=== PATIENT | female | born 1965 | race Caucasian/White ===

== ENCOUNTER 2023-12-28 14:44 | Emergency (ER) | payer OTHER, SELFPAY ==
[2023-12-28 14:51] VITALS: BP 179/99
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
== END 2023-12-28 16:29 | disposition home or self-care (01) ==
LOC: EMR 14:44
PROVIDERS: EMERGENCY PHYSICIAN Emergency Medicine
DX: S05.01XA Injury of conjunctiva and corneal abrasion without foreign body, right eye, initial encounter (principal); S60.551A Superficial foreign body of right hand, initial encounter; V79.3XXA Bus occupant (driver) (passenger) injured in unspecified nontraffic accident, initial encounter; X37 Cataclysmic storm; Y93.89 Activity, other specified; Y92.410 Unspecified street and highway as the place of occurrence of the external cause; Y99.0 Civilian activity done for income or pay; R03.0 Elevated blood-pressure reading, without diagnosis of hypertension
CPT/HCPCS: 99283

== ENCOUNTER 2024-12-09 08:12 | Emergency (ER) | payer OTHER, SELFPAY ==
[2024-12-09 08:14] VITALS: BMI 28.2
[2024-12-09 08:16] VITALS: BP 193/96
[2024-12-09 08:23] VITALS: BP 178/70
[2024-12-09 09:01] VITALS: BP 167/67
[2024-12-09 09:11] LABS: % Eosinophils 1.3 % (0-6); % Immature Granulocytes 0.3 % (0-0.5); % Monocytes 8.1 % (1.7-9.3); % Neutrophils 72.3 % (42.2-75.2); Absolute Basophils 0.1 10^3/uL (0-0.2); Absolute Eosinophils 0.1 10^3/uL (0-0.7); Absolute Lymphocytes 1.3 10^3/uL (1.2-3.4); Absolute Monocytes 0.6 10^3/uL (0.1-0.6); Absolute Neutrophils 5.6 10^3/uL (1.4-6.5); Hematocrit 45.2 % (37.0-47.0); Mean Corp Hgb Conc. 33.2 g/dL (33.0-37.0); Mean Corpuscular Hgb 32.5 pg (27.0-31.0); Mean Corpuscular Volume 97.8 fL (81.0-99.0); Mean Platelet Volume 9.6 fL (7.4-10.4); Nucleated Red Blood Cells % 0 %; Platelet Count 256 10^3/uL (130-400); Red Blood Cell Count 4.62 10^6/uL (4.20-5.40); Red Cell Dist. Width 14.5 % (11.5-14.5); White Blood Cell Count 7.8 10^3/uL (4.8-10.8)
[2024-12-09 09:25] LABS: ALT (SGPT) 14 U/L (0-35); AST (SGOT) 21 U/L (14-36); Albumin 4.4 g/dl (3.5-5.0); Alkaline Phosphatase 77 U/L (38-126); Blood Urea Nitrogen 23 mg/dl (7-17); Calcium 9.3 mg/dl (8.4-10.2); Carbon Dioxide 27 mmol/L (22-30); Chloride 105 mmol/L (98-107); Estimated Creatinine Clearance 112 ml/min; Glucose 87 mg/dl (70-99); Lipase 163 U/L (23-300); Potassium 4.1 mmol/L (3.5-5.1); Sodium 140 mmol/L (135-145); Total Bilirubin 0.6 mg/dl (0.2-1.3); eGFR > 60.00
--- NOTE | 2024-12-09 09:31 | ED.GENMED ---
History of Present Illness
General
Chief Complaint: Chest Pain
Time Seen by Provider: 12/09/24 09:03
History of Present Illness
History of Present Illness:
59-year-old female presents the emergency department for evaluation of chest pain that began last night. She also reports intermittent tingling of the left upper extremity for the past week. She denies any exertional component to her chest pain.
No associated fevers or chills. Pain is nonradiating but is somewhat pleuritic in nature. Does not feel short of breath. No associated fever, chills, sweats. She admits to poor compliance with routine health care and has not seen a physician in
many years. She is a smoker
Review of Systems
Review of Systems
Allergies reviewed?: Yes
All Other Systems: ROS reviewed and negative except as documented in HPI and ROS
Phy Exam
Physical Exam
Physical Exam:
GEN: Well appearing, NAD, WDWN
HEENT: Oral mucosa moist, no scleral icterus
Cardiac: Regular rate and rhythm, no murmurs
Lung: No respiratory distress, no tachypnea, lungs clear to auscultation bilaterally
MSK: No gross deformity or injuries
Skin: Good color, no pallor or jaundice, no rashes
Neuro: AO x3, moves all extremities freely
Psych: Calm, cooperative
Scores
Heart Score for Chest Pain Patients
STEMI patient?: No
History: Slightly or Non-Suspicious
ECG: Normal
Age: >45 - <65 years
Risk Factors: >/= 3 Risk Factors or History of CAD
Troponin: </= Normal Limit
Heart Score for Chest Pain Patients: 3
Heart Score Risk: 2.5% MACE over next 6 weeks
Course
Orders/Labs/Results
Orders:
Orders
12/09/24 08:14
Electrocardiogram (*1) Urgent
Reason for Study: Chest Pain
EKG- Treatment ONCE
12/09/24 08:59
Complete Blood Count/With Diff Urgent
Comprehensive Metabolic Panel Urgent
Lipase Urgent
Troponin I Urgent
12/09/24 09:16
Nitroglycerin Sublingual [Nitrostat (Sublingual)] 0.4 mg SL NOW STA
CR Chest - 2 Views Urgent
Comment:
Reason For Exam: chest pain
12/09/24 10:02
D-Dimer Urgent
12/09/24 10:47
Ketorolac [Toradol] 15 mg IV NOW STA
Abnormal Lab Results
12/09/24
08:59
MCH 32.5 H pg
(27.0-31.0)
Lymphocytes % 17.0 L %
(20.5-51.1)
BUN 23 H mg/dl
(7-17)
12/09/24 08:59
12/09/24 08:59
Vital Signs
Initial and Last Documented VS:
Initial Vital Signs
Temp Pulse Resp BP Pulse Ox
98.5 F 91 18 193/96 100
12/09/24 08:16 12/09/24 08:16 12/09/24 08:16 12/09/24 08:16 12/09/24 08:16
Last Documented Vital Signs
Temp Pulse Resp BP Pulse Ox
98.5 F 68 22 148/81 98
12/09/24 08:16 12/09/24 08:45 12/09/24 08:45 12/09/24 09:49 12/09/24 08:45
MDM/Problems Addressed
MDM/Problems Addressed:
Symptoms are nonexertional and pleuritic in nature. Reassuring troponin and negative D-dimer. Although she does have numerous cardiac risk factors I do not feel there is need for admission for further provocative testing thus will refer to
cardiology through the chest pain hotline. Was given 1 dose of sublingual nitroglycerin without any pain relief
Comment
Comment:
EKG independently interpreted by me shows normal sinus rhythm at a rate of [address]ressions that are comparable to EKG from 2019.
*Critical Care Note
Total Time (30-74mins, 75-104mins- exclusive of procedures): Not Applicable
ED Attending Note
-
Portions of this chart may have been created with voice recognition software.� Occasional wrong word or��sound alike� substitutions may have occurred due to the inherent limitations of voice recognition software.
Discharge Plan
Departure
Patient Disposition: Home (Routine Discharge)
Date of Disposition: 12/09/24
Time of Disposition: 11:11
Patient with high blood pressure during this ER visit?: No
Discharge Problem:
Chest pain
Instructions: Chest Pain DCA Follow Up
Prescriptions:
No Action
polymyxin B sulf-trimethoprim 10,000 unit- 1 mg/mL drops
1 drp BOTH EYES QID 5 Days Qty: 10 0RF
Referrals:
UNKNOWN - PT DOES,NOT KNOW [Family Provider] -
Activity Restrictions/Additional Instructions:
[facility]
[address]
[place] [address]
[phone]
Please follow-up with cardiology as well as the above listed family medicine provider to establish long-term health care
Interventions
Interventions:
*Risk Screen - Suicide Last Done: 12/09/24 08:16
*General Assessment Last Done: 12/09/24 08:16
*Neglect/Abuse Screening Last Done: 12/09/24 08:16
*ED COVID-19 Vaccine History Last Done: 12/09/24 08:16
ED- Cardiac Assessment Last Done: 12/09/24 08:14
Discharge Date and Time
Print Language: [place]
[2024-12-09 09:36] LABS: Troponin I < 0.012 ng/ml
[2024-12-09] MEDS: NITROSTAT (SUBLINGUAL) 0.4 MG SL (09:49)
[2024-12-09 09:51] VITALS: BP 148/81
[2024-12-09 10:00] VITALS: BP 119/104
[2024-12-09 10:20] LABS: D-Dimer 0.39 ug/mlFEU (0.00-0.50)
[2024-12-09 11:00] VITALS: BP 124/69
[2024-12-09] MEDS: TORADOL 15 MG IV (11:06)
== END 2024-12-09 11:50 | disposition home or self-care (01) ==
LOC: EMR 08:12
PROVIDERS: Emergency Medicine; Physician Assistant; EMERGENCY PHYSICIAN Emergency Medicine
DX: R07.89 Other chest pain (principal); R20.2 Paresthesia of skin; F17.200 Nicotine dependence, unspecified, uncomplicated
CPT/HCPCS: 99284; 96374; 71046; 80053; 83690; 84484; 85025; 85379; 93005